=== PATIENT | male | born 1955 | race Caucasian/White ===

== ENCOUNTER → 2024-10-08 | Outpatient (CLI) | payer MEDICARE, MEDICAID, SELFPAY ==
--- NOTE | 2024-10-08 10:00 | XR_ITS ---
Examination: Bone densitometry Date and time of exam:October 08, 2024 0926 hours INDICATIONS: 5-year-old male with diagnosis age related osteoporosis, calcium and vitamin D 6 months Technique: Lumbar spine and hip total bone mineralization values of an calculated. Peak reference and age match control results have been displayed. Findings: Lumbar spine total bone mineralization is0.896 gm/cm2. This is 1.8 standard deviations below peak reference. This is 0.9 standard deviations below age-matched controls. Hip total bone mineralization is 1.014 gm/cm2 This is 0.3 standard deviations below peak reference. This is 0.4 standard deviations above age-matched controls Impression: There is osteopenia based on lumbar spine measurements. There is osteopenia based on hip measurements
== END | disposition home or self-care (01) ==
PROVIDERS: Referring Provider Family Medicine; Visit Provider Family Medicine
DX: M85.89 Other specified disorders of bone density and structure, multiple sites (principal)
CPT/HCPCS: 77080

== ENCOUNTER → 2024-10-27 | Outpatient (CLI) | payer MEDICARE, MEDICAID, SELFPAY ==
--- NOTE | 2024-10-27 13:30 | ECHO_ITS ---
Transthoracic Echo Report Ht (in): 65 Wt (lb): 187 Exam Location: Echo Lab Status: [employer] Pin Adjuster: Yana Webster Indications: Procedure Performed: BP: / HR: Rhythm: Atrial fibrillation Technical Quality: Fair MEASUREMENTS (Male / Female) Normal Values 2D ECHO LV Diastolic Diameter PLAX 3.6 cm 4.2 - 5.9 / 3.9 - 5.3 cm LV Systolic Diameter PLAX 2.6 cm IVS Diastolic Thickness 1.0 cm 0.6 - 1.0 / 0.6 - 0.9 cm LVPW Diastolic Thickness 0.9 cm 0.6 - 1.0 / 0.6 - 0.9 cm LV Relative Wall Thickness 0.5 LVOT Diameter 2.0 cm LA Volume Index 24.6 cm?/m? 16 - 28 cm?/m? Ascending Aorta Diameter 2.9 cm M-MODE Aortic Root Diameter MM 3.0 cm LA Systolic Diameter MM 3.2 cm LA Ao Ratio MM 1.1 AV Cusp Separation MM 2.4 cm DOPPLER AV Peak Velocity 99.0 cm/s AV Peak Gradient 3.9 mmHg AV Mean Gradient 2.0 mmHg AV Velocity Time Integral 20.3 cm LVOT Peak Velocity 81.3 cm/s LVOT Peak Gradient 2.6 mmHg LVOT Velocity Time Integral 15.0 cm AV Area Cont Eq vti 2.3 cm? AV Area Cont Eq pk 2.6 cm? MV Peak Velocity 102.0 cm/s MV Peak Gradient 4.2 mmHg MV Mean Velocity 57.7 cm/s MV Mean Gradient 2.0 mmHg MV Area PHT 4.2 cm? Mitral E Point Velocity 101.0 cm/s Mitral A Point Velocity 1.5 cm/s Mitral E to A Ratio 69.2 LV E' Lateral Velocity 16.1 cm/s Mitral E to LV E' Lateral Ratio 6.3 LV E' Septal Velocity 10.3 cm/s Mitral E to LV E' Septal Ratio 9.8 FINDINGS Left Ventricle Normal left ventricular size, wall thickness, systolic function with no obvious regional wall motion abnormalities. The ejection fraction is visually estimated at 50-55%. Right Ventricle The right ventricle is normal in size and systolic function. Left Atrium The left atrium is normal by two-dimensional, color flow and Doppler imaging with no structural abnormalities, no thrombus formation present. Right Atrium The right atrium is normal by two-dimensional imaging, color flow and Doppler imaging with no struct ural abnormalities, no thrombus formation present. Atrial Septum The interatrial septum appears normal with no evidence of a shunt. Aorta The aorta is normal by two-dimensional, color flow and Doppler interrogation. Mitral Valve The mitral valve is normal by two-dimensional, color flow and Doppler interrogation. There is trace mitral valve regurgitation. Aortic Valve The aortic valve is trileaflet and normal by two-dimensional, color flow and Doppler interrogation. There is no significant aortic valve regurgitation. Tricuspid Valve The tricuspid valve is normal by two-dimensional, color flow and Doppler interrogation. There is tra ce tricuspid valve regurgitation. Pulmonic Valve There is no significant pulmonic valve regurgitation. Vessels The pulmonary artery appears normal. The inferior vena cava pulmonary and hepatic veins appear sarika l. Pericardium The pericardium is normal by two-dimensional imaging. There is no significant pericardial effusion. CONCLUSIONS Normal LV size and function. Estimated EF 50-55% Normal RV size and function Trace MR, TR. Alona Felix (Electronically Signed) Final Date: 28 October 2024 10:14
--- NOTE | 2024-10-27 14:24 | EKG_ITS ---
[facility] Test Date: 2024-10-27 Pat Name: OLIVER GOSS Department: Room: - Gender: Male Copy Chief: SONI : 1955 Requested By: Raymundo Quintero Order Number: [id number] Reading MD: Raymundo Quintero Measurements Intervals [place] Rate: 97 P: DC: QRS: 25 QRSD: 90 T: 41 QT: 336 QTc: 428 Interpretive Statements ATRIAL FIBRILLATION INDETERMINATE AXIS MINIMAL ST DEPRESSION ABNORMAL RHYTHM ECG Compared to ECG 05/31/2024 16:01:49 Indeterminate axis now present ST (T wave) deviation now present /store/S0/[id number].pdf
== END | disposition home or self-care (01) ==
PROVIDERS: PCP Family Medicine; Referring Provider Family Medicine; Visit Provider Family Medicine
DX: I08.1 Rheumatic disorders of both mitral and tricuspid valves (principal)
CPT/HCPCS: 93005; 93306

== ENCOUNTER → 2025-06-06 | Outpatient (CLI) | payer MEDICARE, MEDICAID, SELFPAY ==
--- NOTE | 2025-06-06 17:31 | EKG_ITS ---
[facility] Test Date: 2025-06-06 Pat Name: OLIVER GOSS Department: Room: - Gender: Male [employer]: STALIN : 1955 Requested By: Raymundo Quintero Order Number: [id number] Reading MD: Raymundo Quintero Measurements Intervals [place] Rate: 97 P: [place]: QRS: 40 QRSD: 87 T: 68 QT: 350 QTc: 445 Interpretive Statements ATRIAL FIBRILLATION ABNORMAL RHYTHM ECG Compared to ECG 10/27/2024 14:28:40 Indeterminate axis no longer present ST (T wave) deviation no longer present /store/S0/[id number].pdf
== END | disposition home or self-care (01) ==
PROVIDERS: PCP Family Medicine; Referring Provider Family Medicine; Visit Provider Family Medicine
DX: R07.9 Chest pain, unspecified (principal)
CPT/HCPCS: 93005